=== PATIENT | male | born 1995 | race Caucasian/White ===

== ENCOUNTER 2019-07-24 09:50 | Outpatient (CLI) | payer OTHER, SELFPAY ==
--- NOTE | 2019-07-30 12:58 | WPDHOLTEREM ---
Holter/Event Monitor Holter/Event Monitor Date of procedure: 07/24/19 Procedure Type: 48 hour holter monitor Indications: Palpitations Conclusion: 1. 48 hour holter monitor on 07/24/19. 2. Underlying rhythm is sinus rhythm. HR rang 45-164 bpm; average HR 81 bpm. 3. There are 2 premature supraventricular complexes. No supraventricular tachycardia. 4. There is one premature ventricular complex. No ventricular tachycardia. 5. No sinoatrial or atrioventricular blocks. No significant pauses greater than 2 seconds. 6. Patient reports pounding heart which demonstrate sinus rhythm at 86 bpm.
== END 2019-07-24 09:51 | disposition home or self-care (01) ==
PROVIDERS: PCP Family Medicine; Visit Provider Physician Assistant Medical
DX: R00.2 Palpitations (principal)
CPT/HCPCS: 93225; 93226

== ENCOUNTER 2020-04-07 10:59 | Outpatient (CLI) | payer OTHER, SELFPAY | END 2020-04-07 11:00 | disposition home or self-care (01) | LOC: ANHAUDIO 11:01 | PROVIDERS: PCP Family Medicine; Visit Provider Otolaryngology | DX: H69.80 Other specified disorders of Eustachian tube, unspecified ear (principal) | CPT/HCPCS: 92552; 92556; 92567 ==